=== PATIENT | male | born 1925 | race Caucasian/White ===

== ENCOUNTER 2016-12-02 20:17 | Inpatient (IN) | payer MEDICARE, OTHER ==
[~2016-12-02] VITALS: Ht 177.8 cm; Wt 83.7 kg
--- NOTE | 2016-12-04 18:18 | NUR ---
educated patient and family on medication coreg since this is a new med. answered patient and family concernds related to xarelto. reported [facility] reults from today to patient and family per dr carmen order. patient and family verbalized uinderstanding
== END 2016-12-09 14:15 | disposition home or self-care (01) | DRG 438 ==
LOC: ER 20:17 → MED 23:23 → ER 12-03 00:20 → MED 12-03 00:20
PROVIDERS: ADMIT Internal Medicine
DX: K85.10 Biliary acute pancreatitis without necrosis or infection (principal); J18.9 Pneumonia, unspecified organism; I48.2 Chronic atrial fibrillation; I10 Essential (primary) hypertension; E78.5 Hyperlipidemia, unspecified; N40.1 Benign prostatic hyperplasia with lower urinary tract symptoms; R35.1 Nocturia; I25.10 Atherosclerotic heart disease of native coronary artery without angina pectoris; Z98.61 Coronary angioplasty status; Z90.49 Acquired absence of other specified parts of digestive tract; Z94.7 Corneal transplant status; Z79.82 Long term (current) use of aspirin; Z79.01 Long term (current) use of anticoagulants; Z79.899 Other long term (current) drug therapy; Z82.49 Family history of ischemic heart disease and other diseases of the circulatory system; Z83.3 Family history of diabetes mellitus; G89.29 Other chronic pain; M54.9 Dorsalgia, unspecified; E87.70 Fluid overload, unspecified
CPT/HCPCS: 36415; 74181; 93306; J1940; Q9967

== ENCOUNTER 2016-12-02 20:17 | Emergency (ER) | payer MEDICARE, OTHER | END 2016-12-03 00:19 | disposition critical access hospital (66) | LOC: ER 20:17 | DX: K85.90 Acute pancreatitis without necrosis or infection, unspecified (principal); I48.2 Chronic atrial fibrillation; K80.20 Calculus of gallbladder without cholecystitis without obstruction; I10 Essential (primary) hypertension; Z79.82 Long term (current) use of aspirin; Z79.899 Other long term (current) drug therapy | CPT/HCPCS: 36415; 96361; 96374; 96375; 96376; Q9967 ==